=== PATIENT | female | born 1950 | race Caucasian/White ===

== ENCOUNTER 2018-07-20 05:54 | Inpatient (IN) | payer OTHER, BC ==
[2018-07-07 12:38] LABS: HEMATOCRIT 43.4 % (37.0-47.0); HEMOGLOBIN 14.9 gm/dL (12.0-15.0); MCH 30.3 pg (26.0-34.0); MCHC 34.4 g/dL (28.0-37.0); MCV 88.2 fL (80.0-100.0); RBC 4.92 mil/uL (4.20-5.00); RDW 13.2 % (10.5-14.5); WBC 5.8 thou/uL (4.0-11.0)
[2018-07-07 12:43] LABS: ALBUMIN 4.5 g/dL (3.4-5.0); CALCIUM 10.4 mg/dL (8.5-10.1); CREATININE 0.7 mg/dL (0.6-1.0)
[2018-07-07 12:48] LABS: PROTIME 10.2 Seconds (9.3-11.4)
[2018-07-07 13:14] LABS: URINE BILIRUBIN NEGATIVE (Negative); URINE BLOOD NEGATIVE (Negative); URINE CLARITY CLEAR; URINE COLOR YELLOW; URINE GLUCOSE-RANDOM* NEGATIVE (Negative); URINE KETONES NEGATIVE (Negative); URINE LEUKOCYTES-REFLEX NEGATIVE (Negative); URINE NITRITE-REFLEX NEGATIVE (Negative); URINE PROTEIN (DIPSTICK) NEGATIVE (Negative); URINE UROBILINOGEN 0.2 E.U./dl (0.2-1.0)
[~2018-07-20] VITALS: Ht 162.6 cm; Wt 68.0 kg
--- NOTE | ~2018-07-20 | O ---
[facility] [place] [address] OPERATIVE REPORT Name: DOMINIC MCPHERSON Room #: 424-P ADM IN M.R.#: [id number] Admission: 07/20/18 Attend Phys: Iván Meza MD Discharge: Date of : 46 Report #: [id number] THIS REPORT FOR: //name// CC: Ricardo Meza DATE OF SERVICE: 07/20/2018 PREOPERATIVE DIAGNOSIS: Right knee osteoarthritis. POSTOPERATIVE DIAGNOSIS: Right knee osteoarthritis. PROCEDURE: Right total knee arthroplasty using Navio robotic assistance. SURGEON: Iván Meza MD. ENVIRONMENTAL ENGINEERING AIDE: Christine Mahmood PA-C. ANESTHESIA: LMA with an adductor canal block. IMPLANTS: [employer] Nephew size 5 Legion posterior stabilized narrow cobalt chrome femur, a size 3 tibia, size 11 polyethylene and a size 32 patella. TOURNIQUET TIME: 57 minutes. ESTIMATED BLOOD LOSS: 25 mL. COMPLICATIONS: None. SPECIMENS: None. CONDITION UPON LEAVING THE OPERATING ROOM: Stable. INDICATIONS FOR PROCEDURE: The patient is a 68-year-old female who has right knee osteoarthritis. She had failed conservative measures for this and after discussion with her, she elected for right total knee arthroplasty. DESCRIPTION OF PROCEDURE: Risks, benefits, alternatives, complications were discussed in detail with the patient including but not limited to risk of anesthesia, risk of damage to nerves, arteries, blood vessels, risk for infection, bleeding, risk for continued knee pain, need for reoperation. Informed consent was obtained from the patient. Right knee was appropriately marked in the preoperative holding area. IV Ancef was given for preoperative antibiotics. Adductor canal block was placed by anesthesia. She was brought to the operating room and placed in supine position on operating room table. LMA anesthesia was induced without complication. Tourniquet was placed on the right [address] [address] OPERATIVE REPORT Name: KYDOMINIC JOSEFA Room #: 424-P [facility] IN M.R.#: [id number] Admission: 07/20/18 Attend Phys: Iván Meza MD Discharge: Date of : 46 Report #: [id number] thigh. Right lower extremity was prepped and draped in normal sterile fashion. Timeout was performed properly identifying the patient and procedure as well as the instrumentation and implants. All in the operating room were in agreement. Right lower extremity was exsanguinated, tourniquet was inflated. Tourniquet time was 57 minutes. Standard midline approach to the knee was made with 10 blade through the skin. Dissection was taken down sharply to the fascia and deep flaps were developed medially and laterally. Fresh 10 blade was used to make a medial parapatellar arthrotomy and the knee was inspected. There was severe tricompartmental osteoarthritis. Anterior horns of meniscus were removed sharply. ACL and PCL were removed sharply. Reference pins were then placed in the femur and the tibia for the Navio system and the knee was digitally mapped using the [employer] robotic system. Intraoperative plan was made. We sized to a size 5 femur and a size 3 tibia. After acceptance of the intraoperative plan, a distal femoral cut was made with the Navio evan. A 4-in-1 cutting block was then placed and anterior, posterior and chamfer cuts were made. The tibia was then subluxed anteriorly with hyperflexion of the knee. The remainder of the menisci removed with Bovie cautery. Tibial resection was then made using the Navio system for placement of the resection guide. After this, flexion and extension gaps were checked and found to have good balance in flexion and extension both medially and laterally. Tibia was sized, found to be a size 3. Size 3 tibial trial was placed, pinned and punched. The size 5 femoral trial was placed and the box cut was made. This was then trialed with a size 11 polyethylene as per the intraoperative plan. Knee was taken through range of motion, found to be stable, found to have good balance in flexion, extension both medially and laterally. A 9 mm was then removed from the posterior surface of the patella and a size 32 patellar trial button was placed. Knee was taken through range of motion, found to be stable, found to have good balance in flexion and extension both medially and laterally. After this, trial components were removed. Bone ends were thoroughly irrigated with normal saline. A final size 3 tibia, a size 5 Legion cobalt chrome narrow posterior stabilized femur and a size 32 patella were cemented in place using standard cementation techniques. While the cement cured, a periarticular injection consisting of morphine, ropivacaine, epinephrine and Toradol was placed around the knee joint capsule. After the cement cured, the tourniquet was deflated. Hemostasis was obtained with Bovie cautery. Final size 11 polyethylene was placed. A gram of vancomycin was placed deep in the joint. The fascia was closed with 0 Vicryl, skin was closed with 2-0 Vicryl and 3-0 Monocryl. Dermabond and a SEGUN dressing was applied. The patient tolerated this procedure well and went to recovery room under care of anesthesia postoperatively. <ELECTRONICALLY SIGNED> By: Iván Meza MD 07/20/18 1713 1314 1335 Iván Meza MD /nt
--- NOTE | ~2018-07-20 | EKG ---
[address] [address] ELECTROCARDIOGRAM REPORT Name: DOMINIC MCPHERSON Room #: PRE IN ..#: [id number] Admission: Attend Phys: Iván Meza MD Discharge: Date of : 46 Report #: [id number] THIS REPORT FOR: //name// [facility] Test Date: 2018-07-07 Test Time: 12:33:56 Pat Name: DOMINIC MCPHERSON Department: Room: Gender: F [employer] Worker: Siomara KENNY : 1950 Requested By: Iván Meza Order Number: [id number] MD: John Cerna Measurements Intervals [place] Rate: 80 P: 71 AL: 174 QRS: 41 QRSD: 98 T: 33 QT: 357 QTc: 412 Interpretive Statements Sinus rhythm Compared to ECG 10/03/2015 08:38:38 No significant changes Electronically Signed On 07-07-2018 17:19:36 DESIGN SPECIALIST by John Cerna [email or web address] <ELECTRONICALLY SIGNED> By: John Cerna MD 07/07/18 1719 1233 1233 John Cerna MD /DAHLIA
[~2018-07-20 05:54] MED LIST: AMBIEN 5 MG TABL5 M1 PO; CALCIUM 600 MG1 EAC2 PO; COZAAR 50 MG TA50 M2 PO; FLEXERIL PO; FLONASE 0.05%50 MCG NASAL; NASAL RINSE NASAL; NEXIUM40 MG PO; NORCO 5-325 TA1 EACH PO; NORCO 7.5-3251 EACH PO; PERCOCET 10-321 EACH PO; RESTORIL15 MG PO; TRAZODONE HCL100 MG PO; XANAX 0.25 MG0.25 MG PO; XANAX 0.5 MG0.5 MG PO; ZANTAC 150MG T150 MG PO
[2018-07-20 11:02] VITALS: BP 147/63
[2018-07-20 17:34] VITALS: BP 136/70
[2018-07-20 19:50] VITALS: BP 145/75
[2018-07-21 03:50] VITALS: BP 128/69
[2018-07-21 06:02] LABS: HEMATOCRIT 36.7 % (37.0-47.0); HEMOGLOBIN 12.6 gm/dL (12.0-15.0); MCH 30.3 pg (26.0-34.0); MCHC 34.2 g/dL (28.0-37.0); MCV 88.5 fL (80.0-100.0); RBC 4.15 mil/uL (4.20-5.00); RDW 13.5 % (10.5-14.5); WBC 10.8 thou/uL (4.0-11.0)
[2018-07-21 07:30] VITALS: BP 133/63
[2018-07-21 15:36] VITALS: BP 133/63
[2018-07-21 16:04] VITALS: BP 112/58
[2018-07-21 19:45] VITALS: BP 123/74
[2018-07-22 05:02] VITALS: BP 112/60
[2018-07-22 05:43] LABS: HEMATOCRIT 34.1 % (37.0-47.0); HEMOGLOBIN 11.7 gm/dL (12.0-15.0); MCH 30.8 pg (26.0-34.0); MCHC 34.3 g/dL (28.0-37.0); MCV 89.6 fL (80.0-100.0); RBC 3.81 mil/uL (4.20-5.00); RDW 13.6 % (10.5-14.5); WBC 7.7 thou/uL (4.0-11.0)
[2018-07-22 08:14] VITALS: BP 129/53
[2018-07-22] MEDS ORDERED: NEURONTIN 300300 M1 PO (12:27)
[2018-07-22] MEDS ORDERED: TRI-BUFFERED A325 M1 PO (12:27)
[2018-07-22 13:06] VITALS: BP 104/48; BP 133/63
[2018-07-22 14:05] VITALS: BP 133/63
== END 2018-07-22 13:36 | disposition home health service (06) | DRG 470 ==
LOC: PRE 05:54 → TBA 07:18 → 4E 07:18 → OR 08:02 → EDSTATUS 08:03 → PRE 08:04 → 4E 15:48 → ENTRNSPT 07-22 13:16 → EDTRNSPTSTS 07-22 13:18 → 4E 07-22 13:36
PROVIDERS: Orthopaedic Surgery
PROC: 0SRC0J9 Replacement of Right Knee Joint with Synthetic Substitute, Cemented, Open Approach (ICD-10-PCS; principal; 2018-07-20)
PROC: 8E0Y0CZ Robotic Assisted Procedure of Lower Extremity, Open Approach (ICD-10-PCS; principal; 2018-07-20)
DX: M17.11 Unilateral primary osteoarthritis, right knee (principal); Z91.041 Radiographic dye allergy status; Z91.048 Other nonmedicinal substance allergy status
CPT/HCPCS: 10783; 50010; 50101; 50415; 50954; 51130; 51225; 51771; 53000; 53078; 53364; 54118; 56527; 56528; 57095; 57103; 57109; 57110; 57113; 57127; 57180; 62110; 62900; 64042; 70005

== ENCOUNTER 2019-07-12 06:40 | Inpatient (IN) | payer OTHER, BC ==
[2019-06-29 12:01] LABS: HEMATOCRIT 41.3 % (37.0-47.0); HEMOGLOBIN 13.9 gm/dL (12.0-15.0); MCH 30.6 pg (26.0-34.0); MCHC 33.7 g/dL (28.0-37.0); MCV 90.9 fL (80.0-100.0); RBC 4.55 mil/uL (4.20-5.00); RDW 13.5 % (10.5-14.5)
[2019-06-29 12:11] LABS: PROTIME 9.7 Seconds (9.3-11.4)
[2019-06-29 12:15] LABS: URINE BILIRUBIN NEGATIVE (Negative); URINE BLOOD NEGATIVE (Negative); URINE CLARITY CLEAR; URINE COLOR YELLOW; URINE GLUCOSE-RANDOM* NEGATIVE (Negative); URINE KETONES NEGATIVE (Negative); URINE LEUKOCYTES-REFLEX NEGATIVE (Negative); URINE NITRITE-REFLEX NEGATIVE (Negative); URINE PROTEIN (DIPSTICK) NEGATIVE (Negative); URINE SPECIFIC GRAVITY <= 1.005 (1.005-1.035); URINE UROBILINOGEN 0.2 E.U./dl (0.2-1.0)
[2019-06-29 12:21] LABS: ALBUMIN 4.2 g/dL (3.4-5.0); CALCIUM 9.8 mg/dL (8.5-10.1); CREATININE 0.7 mg/dL (0.6-1.0); POTASSIUM 4.1 mmol/L (3.5-5.1)
[~2019-07-12] VITALS: Ht 152.4 cm; Wt 67.1 kg
[~2019-07-12 06:40] MED LIST changes: +AMBIEN 10 MG TA10 MG PO; +COZAAR 50 MG TA50 M1 PO; -COZAAR 50 MG TA50 M2 PO; +HYDRALAZINE 2525 MG PO; +NEURONTIN 300300 M1 PO; +NEURONTIN300 MG PO; +PRILOSEC OTC20 MG PO; +TRI-BUFFERED A325 M1 PO
[2019-07-12 09:49] VITALS: BP 159/83
--- NOTE | 2019-07-12 15:41 | NUR ---
INITIAL ASSESSMENT: Pt evaluated for d/c planning needs. Reviewed chart and spoke with nurse and pt. Pt is alert and oriented. Pt lives in house with spouse and was independent with ADL's prior to admission to the hospital. Pt has walker and cane at home. Pt was hospitalized at [facility] in July 2018 and went home with [facility], and then went to outpatient PT at [place]. Pt plans on returning home with home health and then go to [place] outpatient again. Will remain available to assist as needed.
[2019-07-12 20:15] VITALS: BP 104/59
--- NOTE | 2019-07-13 04:16 | NUR ---
ASSUMED PT CARE AT 1900. PAIN MEDS GIVEN FOR SORENESS OF L KNEE. STOOD UP TO STRETCH, STEADY ON FEET. SCDS ON, ANTIBIOTICS GIVEN. PATIENT RESTING COMFORTABLY.
[2019-07-13 04:25] VITALS: BP 150/76
[2019-07-13 07:01] LABS: HEMATOCRIT 34.9 % (37.0-47.0); HEMOGLOBIN 11.7 gm/dL (12.0-15.0); MCH 30.7 pg (26.0-34.0); MCHC 33.6 g/dL (28.0-37.0); MCV 91.5 fL (80.0-100.0); RBC 3.82 mil/uL (4.20-5.00); RDW 13.3 % (10.5-14.5); WBC 10.4 thou/uL (4.0-11.0)
[2019-07-13 07:20] VITALS: BP 146/74
--- NOTE | 2019-07-13 10:00 | O ---
[facility] [place] [address] OPERATIVE REPORT Name: DMOINIC MCPHERSON Room #: 438-P ADM IN M.R.#: [id number] Admission: 07/12/19 Attend Phys: Iván Meza MD Discharge: Date of : 46 Report #: [id number] THIS REPORT FOR: //name// CC: Ricardo Meza DATE OF SERVICE: 07/12/2019 PREOPERATIVE DIAGNOSIS: Left knee osteoarthritis. POSTOPERATIVE DIAGNOSIS: Left knee osteoarthritis. PROCEDURE: Left total knee arthroplasty using Navio robotic assistance. SURGEON: Iván Meza MD. DIRECTOR INTERNAL COMMUNICATIONS: Christine Mahmood PA-C. INDICATIONS FOR DIRECTOR INTERNAL COMMUNICATIONS: Throughout the case, extensive retraction and manipulation of the knee was required. This was afforded to me by my printer's assistant. ANESTHESIA: LMA with an adductor canal block. IMPLANTS: Flores [employer] Nephew size 5 narrow Legion cobalt chrome posterior stabilized femur, size 3 tibia, size 11 highly constrained polyethylene and size 32 patella. TOURNIQUET TIME: 58 minutes. ESTIMATED BLOOD LOSS: 25 mL. COMPLICATIONS: None. SPECIMENS: None. CONDITION UPON LEAVING THE OPERATING ROOM: Stable. INDICATIONS FOR PROCEDURE: The patient is a 69-year-old female with left knee osteoarthritis. She had failed conservative measures for this and after discussion with her, she elected for left total knee arthroplasty. DESCRIPTION OF PROCEDURE: Risks, benefits, alternatives, complications were discussed in detail with the patient including but not limited to risk of anesthesia, risk of damage to nerves, arteries, blood vessels, risk for infection, bleeding, risk for continued knee pain, and need for reoperation. Informed consent was obtained from the patient. Left knee was appropriately [facility] [address] [place] [address] OPERATIVE REPORT Name: KYDOMINIC RIVERO Room #: 438-P ADM IN M.R.#: [id number] Admission: 07/12/19 Attend Phys: Iván Meza MD Discharge: Date of : 46 Report #: [id number] marked in the preoperative holding area. IV Ancef was given for preoperative antibiotics. Adductor canal block was placed by Anesthesia. She was brought to the operating room and placed in supine position on operating room table. LMA anesthesia was induced without complication. Tourniquet was placed on the left thigh. Left lower extremity was prepped and draped in normal sterile fashion. Timeout was performed properly identifying the patient and procedure as well as the instrumentation and implants. All in the operating room were in agreement. Left lower extremity was exsanguinated, tourniquet was inflated. Tourniquet time was 58 minutes. Standard midline approach to the knee was made with 10-blade through the skin. Dissection was taken down sharply to the fascia and deep flaps were developed medially and laterally. Fresh 10-blade was used to make a medial parapatellar arthrotomy and the knee was inspected. There was severe valgus tricompartmental osteoarthritis. ACL and PCL were removed sharply. Reference pins were placed in the femur and the tibia. The knee was then digitally mapped using the Navio robotic system. Intraoperative plan was made and we sized the size 5 femur with a size 3 tibia and a size 11 spacer. After acceptance of the intraoperative plan, the distal femoral cut was made with a Navio evan. The 4-in-1 cutting block was placed. Anterior, posterior and chamfer cuts were made on the femur. Attention was then turned to the tibia. The remainder of the menisci removed with Bovie cautery. Tibial resection guide was pinned in place using the Navio for placement and tibial resection was made. After this, the tibia was sized and found to be a size 3. Size 3 tibial trial was placed, pinned and punched. A size 5 femoral trial was placed and the box cut was made. This was then trialed with a size 11 polyethylene. Knee was taken through range of motion, found to have good balance in flexion and extension both medially and laterally except in deep flexion, there was some laxity laterally. It was felt we could make up for this with a constrained implant. A 9 mm was resected from the posterior surface of the patella and a size 32 patellar trial button was placed. Knee was taken through range of motion, found to be stable, found to have good patellar tracking. Trial components were removed. Bone ends were thoroughly irrigated with normal saline. A final size 3 tibia, size 5 narrow Legion cobalt chrome posterior stabilized femur and a size 32 patella were cemented in place using standard cementation techniques. While the cement cured, a periarticular injection consisting of morphine, ropivacaine, epinephrine and Toradol was placed around the knee joint capsule. After the cement cured, the tourniquet was deflated. Hemostasis was obtained with Bovie cautery. Final size 11 constrained polyethylene was placed. A gram of vancomycin was placed deep in the joint. The fascia was closed with 0 Vicryl, skin was closed with 2-0 Vicryl, Monocryl. Dermabond and a SEGUN dressing was applied. The patient tolerated this procedure well and went to recovery room under care of anesthesia postoperatively. <ELECTRONICALLY SIGNED> By: Iván Meza MD 07/13/19 1000 1625 1723 Iván Meza MD /nt
--- NOTE | 2019-07-13 10:50 | NUR ---
PT AMBULATING THE HALLS WITH THERAPY. NO PAIN OR RESP DISTRESS AT THIS TIME.
[2019-07-13] MEDS ORDERED: ASPIR 8181 MG PO (12:10)
[2019-07-13 12:38] VITALS: BP 146/74
[2019-07-13 14:01] VITALS: BP 146/74
[2019-07-13 14:02] VITALS: BP 146/74
[2019-07-13 14:04] VITALS: BP 146/74
--- NOTE | 2019-07-13 14:07 | NUR ---
DISCHARGE PAPERS GONE OVER WITH PATIENT SIGNED AND COPY IN CHART. IV ACSESS DCD. RX'S GIVEN TO PATIENT. PT W/O PAIN OR RESP DISTRESS AT DISCHARGE.
--- NOTE | 2019-07-13 16:01 | NUR ---
PT DISCHARGING TODAY TO HOME WITH [facility] FAXED DC ORDERS/SUMMARY TO FACILITY SPOKE WITH DAVE IN INTAKE SHE RECEIVED DC ORDERS AND WILL NOTIFY PT TIME OF VISITS.
== END 2019-07-13 14:09 | disposition home health service (06) | DRG 470 ==
LOC: PRE 06:40 → TBA 09:06 → PRE 11:16 → 4S 15:19 → TBA 15:31 → PRE 16:58 → ENTRNSPT 07-13 13:37 → EDTRNSPTSTS 07-13 13:40 → 4S 07-13 14:09
PROVIDERS: ADMIT Orthopaedic Surgery
PROC: 8E0Y0CZ Robotic Assisted Procedure of Lower Extremity, Open Approach (ICD-10-PCS; principal; 2019-07-12)
PROC: 0SRD0J9 Replacement of Left Knee Joint with Synthetic Substitute, Cemented, Open Approach (ICD-10-PCS; principal; 2019-07-12)
DX: M17.12 Unilateral primary osteoarthritis, left knee (principal); Z88.8 Allergy status to other drugs, medicaments and biological substances; Z91.041 Radiographic dye allergy status; Z79.899 Other long term (current) drug therapy
CPT/HCPCS: 10102; 50010; 50101; 50415; 50954; 51130; 51225; 51320; 52001; 52282; 53000; 53078; 53364; 54118; 56527; 56528; 57095; 57103; 57110; 57127; 57180; 62110; 62900; 64039; 70005